=== PATIENT | male | born 1940 | race Caucasian/White ===

== ENCOUNTER 2017-11-07 12:27 | Inpatient (IN) | payer MEDICARE ==
[~2017-11-07] VITALS: Ht 177.8 cm; Wt 102.6 kg
[2017-11-07] MEDS ORDERED: NITROGLYCERIN 1GM/1 INCH PACKET TD ONE (12:41)
[2017-11-07] MEDS ORDERED: ASPIRIN 325 MG TABLET ONE (12:41)
[2017-11-07 12:49] LABS: BASOPHILS % (AUTO) 0.7 % (0.0-5.0); EOSINOPHILS % (AUTO) 2.8 % (0.0-8.0); HEMATOCRIT 49.4 % (42-54); LYMPHOCYTES % (AUTO) 30.1 % (21.0-51.0); MEAN CORPUSCULAR HEMOGLOBIN 31.6 pg (27.0-33.0); MEAN CORPUSCULAR HGB CONC 34.7 g/dL (32.0-36.0); MEAN CORPUSCULAR VOLUME 91.2 fL (79-99); NEUTROPHILS % (AUTO) 60.4 % (40.0-77.0); NUCLEATED RED BLOOD CELLS 0.1 % (0.0-0.19); PLATELET COUNT (AUTO) 178 K/uL (130-400); RED BLOOD CELL COUNT(AUTO) 5.41 MIL/uL (4.50-6.20); WHITE BLOOD COUNT (AUTO) 8.6 K/uL (4.8-10.8)
[2017-11-07 13:00] LABS: ALBUMIN 3.7 g/dL (3.5-5.0); CREATININE 1.1 mg/dL (0.5-1.5); POTASSIUM 3.8 mmol/L (3.5-5.1)
[2017-11-07 13:01] LABS: INR 1.06 (0.85-1.15); PARTIAL THROMBOPLASTIN TIME 25.1 SEC (26.3-35.5); PROTHROMBIN TIME 11.1 SEC (9.6-11.6)
[2017-11-07 13:41] LABS: BILIRUBIN,TOTAL 0.6 mg/dL (0.2-1.0); TOTAL PROTEIN, SERUM 6.9 g/dL (6.0-8.3)
[2017-11-07 16:42] LABS: CREATINE KINASE MB 2.7 ng/mL (0.5-3.6); TROPONIN I 0.55 ng/mL (0.00-0.06)
[2017-11-07] MEDS ORDERED: METOPROLOL TARTRATE 25 MG TAB ONE (20:10)
[2017-11-07] MEDS ORDERED: ATORVASTATIN CALCIUM 40 MG TABLET PO SCH (21:00)
[2017-11-07] MEDS: METOPROLOL TARTRATE 25 MG TAB PO SCH (21:00)
[2017-11-07 21:05] VITALS: BP 141/78
[2017-11-07 21:15] LABS: CREATINE KINASE MB 3.6 ng/mL (0.5-3.6)
[2017-11-07 21:16] LABS: TROPONIN I 1.93 ng/mL (0.00-0.06)
[2017-11-07] MEDS ORDERED: NITR0.4T50 SL (22:05)
[2017-11-07] MEDS ORDERED: OMEP10SU2 PO (22:05)
[2017-11-07] MEDS ORDERED: ALFU10TA18 PO (22:05)
[2017-11-07] MEDS ORDERED: ISOS30TA11 PO (22:05)
[2017-11-07] MEDS ORDERED: LISI10TA7 PO (22:05)
[2017-11-07] MEDS ORDERED: AEC81 PO (22:05)
[2017-11-07] MEDS ORDERED: DEXT1DRO OP (22:05)
[2017-11-07] MEDS ORDERED: ATOR10 PO (22:05)
[2017-11-07] MEDS ORDERED: METO-408 PO (22:05)
[2017-11-07 23:26] VITALS: BP 129/76
[2017-11-08] VITALS (12 sets, daily range): BP systolic 115–147; BP diastolic 58–81
[2017-11-08] MEDS ORDERED: ACETAMINOPHEN 325 MG TAB PO PRN (01:15)
[2017-11-08] MEDS ORDERED: LIDOCAINE HCL-MPF 1% 2ML VIAL IVP PRN (01:15)
[2017-11-08] MEDS ORDERED: LACTULOSE 20 GM/30 ML UDCUP PO PRN (01:15)
[2017-11-08] MEDS ORDERED: POTASSIUM CHLORIDE 10% ELIXIR 20 MEQ/15 ML UDCUP PO PRN (01:15)
[2017-11-08] MEDS ORDERED: POTASSIUM CHLORIDE 20 MEQ ERTAB PO PRN (01:15)
[2017-11-08] MEDS ORDERED: ONDANSETRON HCL 4 MG/2 ML VIAL IVP PRN (01:15)
[2017-11-08] MEDS ORDERED: POTASSIUM CHLORIDE 20MEQ/100ML 100 ML IV PRN (01:15)
[2017-11-08 04:52] LABS: BASOPHILS % (AUTO) 0.6 % (0.0-5.0); EOSINOPHILS % (AUTO) 3.8 % (0.0-8.0); HEMATOCRIT 47.6 % (42-54); LYMPHOCYTES % (AUTO) 33.6 % (21.0-51.0); MEAN CORPUSCULAR HEMOGLOBIN 31.7 pg (27.0-33.0); MEAN CORPUSCULAR HGB CONC 34.6 g/dL (32.0-36.0); MEAN CORPUSCULAR VOLUME 91.6 fL (79-99); MONOCYTES % (AUTO) 7.7 % (3.0-13.0); NEUTROPHILS % (AUTO) 54.3 % (40.0-77.0); NUCLEATED RED BLOOD CELLS 0.2 % (0.0-0.19); PLATELET COUNT (AUTO) 162 K/uL (130-400); RED CELL DISTRIBUTION WIDTH 14.2 % (11.0-15.5); WHITE BLOOD COUNT (AUTO) 9.5 K/uL (4.8-10.8)
[2017-11-08 04:53] LABS: CREATININE 1.2 mg/dL (0.5-1.5); POTASSIUM 4.2 mmol/L (3.5-5.1)
[2017-11-08] MEDS: ASPIRIN 81MG TAB.CHEW PO SCH (08:05)
[2017-11-08] MEDS: ISOSORBIDE MONO 30MG TAB SR PO SCH (08:05)
[2017-11-08] MEDS: LISINOPRIL 10 MG TABLET PO SCH (08:05)
[2017-11-08] MEDS: PANTOPRAZOLE SODIUM 40 MG TABLET.DR PO SCH (08:05)
[2017-11-08] MEDS: METOPROLOL TARTRATE 25 MG TAB PO SCH ×2 (08:05→20:32)
[2017-11-08] MEDS ORDERED: SODIUM CHLORIDE 0.9% 500ML 500 ML IV SCH (08:23)
[2017-11-08] MEDS ORDERED: ISOVUE-370 50ML VIAL IV ONE (08:30)
[2017-11-08] MEDS ORDERED: BIVALIRUDIN 250 MG/VIAL IV ONE (08:30)
[2017-11-08] MEDS ORDERED: LIDOCAINE HCL-MPF 2% 5ML VIAL ONE (08:30)
[2017-11-08] MEDS ORDERED: IOPAMIDOL-370 100 ML VIAL IV ONE (08:30)
[2017-11-08] MEDS ORDERED: NITROGLYCERIN 5 MG/ML 10 ML VIAL IV ONE (08:30)
[2017-11-08] MEDS ORDERED: FENTANYL CITRATE PF 50 MCG/1 ML 2ML VIAL ONE (08:58)
[2017-11-08] MEDS ORDERED: MIDAZOLAM HCL 1 MG/ML 2ML VIAL ONE (08:58)
[2017-11-08] MEDS ORDERED: ENOXAPARIN SODIUM 40 MG/0.4 ML SYRINGE SQ SCH (09:00)
[2017-11-08] MEDS ORDERED: SODIUM CHLORIDE 0.9% 1000ML 1,000 ML IV SCH (09:26)
[2017-11-08] MEDS ORDERED: METOPROLOL TARTRATE 1 MG/ML 5ML VIAL IV PRN (09:30)
[2017-11-08] MEDS ORDERED: ATORVASTATIN CALCIUM 20 MG TABLET PO SCH (21:00)
[2017-11-08] MEDS ORDERED: ALFUZOSIN 10 MG PO SCH (21:00)
[2017-11-09 03:54] VITALS: BP 145/94
[2017-11-09 04:23] LABS: BASOPHILS % (AUTO) 0.5 % (0.0-5.0); EOSINOPHILS % (AUTO) 3.3 % (0.0-8.0); HEMATOCRIT 45.7 % (42-54); LYMPHOCYTES % (AUTO) 29.8 % (21.0-51.0); MEAN CORPUSCULAR HEMOGLOBIN 31.9 pg (27.0-33.0); MEAN CORPUSCULAR HGB CONC 35.3 g/dL (32.0-36.0); MEAN CORPUSCULAR VOLUME 90.4 fL (79-99); MONOCYTES % (AUTO) 7.5 % (3.0-13.0); NEUTROPHILS % (AUTO) 58.9 % (40.0-77.0); NUCLEATED RED BLOOD CELLS 0.1 % (0.0-0.19); PLATELET COUNT (AUTO) 171 K/uL (130-400); RED BLOOD CELL COUNT(AUTO) 5.05 MIL/uL (4.50-6.20); WHITE BLOOD COUNT (AUTO) 9.5 K/uL (4.8-10.8)
[2017-11-09 04:48] LABS: CREATININE 1.1 mg/dL (0.5-1.5); POTASSIUM 3.9 mmol/L (3.5-5.1)
[2017-11-09 07:41] VITALS: BP 132/72
[2017-11-09] MEDS ORDERED: ISOS30TA11 PO (07:49)
[2017-11-09] MEDS ORDERED: TICA90TA PO (07:49)
[2017-11-09] MEDS: PANTOPRAZOLE SODIUM 40 MG TABLET.DR PO SCH (10:13)
[2017-11-09] MEDS: ISOSORBIDE MONO 30MG TAB SR PO SCH (10:13)
[2017-11-09] MEDS: ASPIRIN 81MG TAB.CHEW PO SCH (10:13)
[2017-11-09] MEDS: METOPROLOL TARTRATE 25 MG TAB PO SCH (10:13)
[2017-11-09] MEDS: LISINOPRIL 10 MG TABLET PO SCH (10:13)
== END 2017-11-09 11:45 | disposition home or self-care (01) | DRG 282 ==
LOC: EDH 12:27 → EDHIP 14:58 → OBSVTOIN 14:58 → 2DH 21:09
PROVIDERS: ADMIT Internal Medicine; ATTEND Internal Medicine
PROC: 4A023N7 Measurement of Cardiac Sampling and Pressure, Left Heart, Percutaneous Approach (ICD-10-PCS; principal; 2017-11-08)
PROC: B2111ZZ Fluoroscopy of Multiple Coronary Arteries using Low Osmolar Contrast (ICD-10-PCS; 2017-11-08)
PROC: B2151ZZ Fluoroscopy of Left Heart using Low Osmolar Contrast (ICD-10-PCS; 2017-11-08)
DX: I21.4 Non-ST elevation (NSTEMI) myocardial infarction (principal); I11.9 Hypertensive heart disease without heart failure; E78.00 Pure hypercholesterolemia, unspecified; E78.5 Hyperlipidemia, unspecified; I25.110 Atherosclerotic heart disease of native coronary artery with unstable angina pectoris; K21.9 Gastro-esophageal reflux disease without esophagitis; N40.0 Benign prostatic hyperplasia without lower urinary tract symptoms; I25.2 Old myocardial infarction; Z79.82 Long term (current) use of aspirin; Z79.899 Other long term (current) drug therapy; Z95.5 Presence of coronary angioplasty implant and graft; Z82.49 Family history of ischemic heart disease and other diseases of the circulatory system
CPT/HCPCS: 36415; 71045; 80048; 80053; 80061; 82550; 82553; 83874; 83880; 84484; 85025; 85610; 85730; 93005; 93458; 99152; 99153; 99291; C1760; C1894; J0583; J1644; J2250; J3010; J3490; J7030; Q9967

== ENCOUNTER → 2019-09-21 | Outpatient (CLI) | payer MEDICARE ==
[~2019-09-21] MED LIST: AEC81 PO; ALFU10TA9 PO; ATOR10 PO; DEXT1DRO OP; ISOS30TA11 PO; LISI10TA7 PO; METO-408 PO; NITR0.4T50 SL; OMEP10SU2 PO; TICA90TA PO
== END | disposition home or self-care (01) ==
LOC: SHCH 08:39
PROVIDERS: ATTEND Internal Medicine Cardiovascular Disease
DX: I48.0 Paroxysmal atrial fibrillation (principal)
CPT/HCPCS: 93306; 93356

== ENCOUNTER 2019-12-06 12:41 | Observation (INO) | payer MEDICARE ==
[~2019-12-06] VITALS: Ht 177.8 cm; Wt 98.6 kg
[2019-12-06] MEDS ORDERED: ASPIRIN 325 MG TABLET ONE (12:47)
[2019-12-06 13:04] LABS: BASOPHILS % (AUTO) 0.4 % (0.0-5.0); EOSINOPHILS % (AUTO) 2.2 % (0.0-8.0); HEMATOCRIT 53.2 % (42-54); MEAN CORPUSCULAR VOLUME 91.3 fL (79-99); MONOCYTES % (AUTO) 8.5 % (3.0-13.0); NEUTROPHILS % (AUTO) 50.7 % (40.0-77.0); PLATELET COUNT (AUTO) 165 K/uL (130-400); RED BLOOD CELL COUNT(AUTO) 5.83 MIL/uL (4.50-6.20); RED CELL DISTRIBUTION WIDTH 13.3 % (11.0-15.5)
[2019-12-06 13:13] LABS: CREATININE 1.3 mg/dL (0.5-1.5)
[2019-12-06 13:14] LABS: INR 1.09 (0.85-1.15); PARTIAL THROMBOPLASTIN TIME 27.2 SEC (26.3-35.5); PROTHROMBIN TIME 11.7 SEC (9.6-11.6)
[2019-12-06 13:18] LABS: ALBUMIN 3.8 g/dL (3.5-5.0); BILIRUBIN,TOTAL 0.8 mg/dL (0.2-1.0); TOTAL PROTEIN, SERUM 6.9 g/dL (6.0-8.3)
[2019-12-06] MEDS ORDERED: NITROGLYCERIN 0.4 MG SL TAB SL PRN (15:00)
[2019-12-06 16:35] VITALS: BP 161/83
--- NOTE | 2019-12-06 17:30 | NUR ---
NOTE CAME IN FROM ER. DX CHEST PAIN R/O ACS. TELEMETRY MONITORING APPLIED AND HE IS ON A FIB A FLUTTER AND WITH PAUSES OF [address] PAGE WAS CALLED AND CARDIOLOGY CONSULT ORDERED. PATIENT ASYMPTOMATIC DENIES CHEST PAIN OR PRESSURE HE HAD FELT AT HOME AND IS THE REASON HE CAME TO HOSPITAL FOR. NO OTHER PROBLEMS VOICED AT THIS TIME. 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 PATIENT TOOK NITRO SL TO RELIEVE HIS SYMPTOMS AT HOME. HE HAS CARDIAC HISTORY AND WITH 2 STENTS PLACED IN THE PAST BACK HOME IN [place].
[2019-12-06] MEDS ORDERED: UBID1CAP56 PO (18:14)
[2019-12-06] MEDS ORDERED: RIVA20TA PO (18:14)
[2019-12-06] MEDS ORDERED: CHOL20004 PO (18:14)
[2019-12-06 19:52] VITALS: BP 145/84
[2019-12-06] MEDS ORDERED: ATORVASTATIN CALCIUM 20 MG TABLET PO SCH (21:00)
[2019-12-06] MEDS: METOPROLOL TARTRATE 25 MG TAB PO SCH (21:00)
--- NOTE | 2019-12-06 21:00 | NUR ---
PATIENT A/OX3, DENIES CHEST PAIN OR SOB. CONTINUES TO BE IN AFIB/AFLUTTER. HR 50-59. BETA ZENOBIA NOT ADMINISTERED DUE TO HR BELOW 60. WILL CONTINUE TO MONITOR.
[2019-12-06] MEDS: ISOSORBIDE MONO 30MG TAB SR PO SCH (21:16)
[2019-12-06] MEDS: RANOLAZINE 500 MG TAB.SR.12H PO SCH (21:16)
[2019-12-06 22:13] LABS: CREATINE KINASE, TOTAL 60 U/L (21-232); MYOGLOBIN 84 ng/mL (10-92); TROPONIN I < 0.04 ng/mL (0.00-0.06)
[2019-12-07] VITALS: BP 143/80
[2019-12-07 04:09] VITALS: BP 138/76
[2019-12-07 05:09] LABS: BASOPHILS % (AUTO) 0.5 % (0.0-5.0); EOSINOPHILS % (AUTO) 2.6 % (0.0-8.0); HEMATOCRIT 52.1 % (42-54); LYMPHOCYTES % (AUTO) 32.8 % (21.0-51.0); MEAN CORPUSCULAR HGB CONC 33.8 g/dL (32.0-36.0); MEAN CORPUSCULAR VOLUME 91.9 fL (79-99); MONOCYTES % (AUTO) 7.3 % (3.0-13.0); NEUTROPHILS % (AUTO) 56.4 % (40.0-77.0); PLATELET COUNT (AUTO) 158 K/uL (130-400); RED BLOOD CELL COUNT(AUTO) 5.67 MIL/uL (4.50-6.20); RED CELL DISTRIBUTION WIDTH 13.4 % (11.0-15.5); WHITE BLOOD COUNT (AUTO) 9.6 K/uL (4.8-10.8)
[2019-12-07 05:30] LABS: CARBON DIOXIDE 25 mmol/L (21-32); CHLORIDE 105 mmol/L (101-111); CHOLESTEROL 74 mg/dL (<200); CREATINE KINASE, TOTAL 51 U/L (21-232); CREATININE 1.1 mg/dL (0.5-1.5); GLOMERULAR FILTR. RATE CALC 68 mL/min (>60); GLUCOSE,RANDOM 90 mg/dL (70-105); HDL CHOLESTEROL 50 mg/dL (29-71); LDL DIRECT 44 mg/dL (0-99); MYOGLOBIN 68 ng/mL (10-92); POTASSIUM 3.8 mmol/L (3.5-5.1); SODIUM SERUM 140 mmol/L (136-145); TRIGLYCERIDES 54 mg/dL (30-200); TROPONIN I < 0.04 ng/mL (0.00-0.06); UREA NITROGEN, BLOOD 16 mg/dL (7-18)
[2019-12-07 08:00] VITALS: BP 142/87
[2019-12-07] MEDS ORDERED: ASPIRIN 81MG TAB.CHEW PO SCH (09:00)
[2019-12-07] MEDS: RANOLAZINE 500 MG TAB.SR.12H PO SCH (09:21)
[2019-12-07] MEDS: METOPROLOL TARTRATE 25 MG TAB PO SCH (09:21)
[2019-12-07] MEDS: ISOSORBIDE MONO 30MG TAB SR PO SCH (09:21)
[2019-12-07 11:00] VITALS: BP 138/61
[2019-12-07 13:43] LABS: CREATINE KINASE, TOTAL 55 U/L (21-232); MYOGLOBIN 55 ng/mL (10-92); TROPONIN I < 0.04 ng/mL (0.00-0.06)
[2019-12-07] MEDS ORDERED: ATOR20TA65 PO (14:49)
[2019-12-07] MEDS ORDERED: ASPI-1005 PO (14:49)
[2019-12-07] MEDS ORDERED: Isosorbide Mono 30MG Tab Sr PO (14:49)
[2019-12-07] MEDS ORDERED: RANO500T2 PO (14:49)
--- NOTE | 2019-12-07 16:04 | NUR ---
DC INSTRUCTIONS GIVEN TO PATIENT USING TEACH BACK, DEMONSTRATES UNDERSTANDING, PRESCRIPTIONS GIVEN TO PATIENT, REMOVED IV CATHETER, INTACT, NO BLEEDING, PT DC'D TO FAMILY, TRANSPORTED BY [facility]
== END 2019-12-07 16:04 | disposition home or self-care (01) ==
LOC: EDH 12:41 → EDHIP 14:55 → 4BH 16:16
PROVIDERS: ADMIT Internal Medicine; ATTEND Internal Medicine
DX: I48.91 Unspecified atrial fibrillation (principal); R07.2 Precordial pain; I25.10 Atherosclerotic heart disease of native coronary artery without angina pectoris; I10 Essential (primary) hypertension; E78.5 Hyperlipidemia, unspecified; E11.9 Type 2 diabetes mellitus without complications; E78.00 Pure hypercholesterolemia, unspecified; I25.2 Old myocardial infarction; Z79.01 Long term (current) use of anticoagulants; Z90.49 Acquired absence of other specified parts of digestive tract; Z95.5 Presence of coronary angioplasty implant and graft
CPT/HCPCS: 36415 ×2; 71045; 80048; 80053; 80061; 82550 ×4; 83874 ×3; 84484 ×4; 85025 ×2; 85610; 85730; 93005 ×3; 99285; G0378 ×11

== ENCOUNTER → 2019-12-14 | Outpatient (CLI) | payer MEDICARE ==
[~2019-12-14] MED LIST changes: -AEC81 PO; +ASPI-1005 PO; +ATOR20TA65 PO; +CHOL20004 PO; +Isosorbide Mono 30MG Tab Sr PO; -LISI10TA7 PO; -OMEP10SU2 PO; +RANO500T2 PO; +REGADENOSON 0.4 MG/5 ML PF SYG IVP SCH; +RIVA20TA PO; -TICA90TA PO; +UBID1CAP56 PO
== END | disposition home or self-care (01) ==
LOC: SHCH 08:33
PROVIDERS: ATTEND Internal Medicine Cardiovascular Disease
DX: I20.9 Angina pectoris, unspecified (principal)
CPT/HCPCS: 78452; 93017; 96374; A9500 ×2; J2785

== ENCOUNTER → 2023-08-31 | Outpatient (CLI) | payer MEDICARE ==
[~2023-08-31] MED LIST changes: +CHOL2000 PO; -CHOL20004 PO; -REGADENOSON 0.4 MG/5 ML PF SYG IVP SCH
== END | disposition home or self-care (01) ==
LOC: RAH 08:57
DX: M16.0 Bilateral primary osteoarthritis of hip (principal); M54.50 Low back pain, unspecified; M47.816 Spondylosis without myelopathy or radiculopathy, lumbar region
CPT/HCPCS: 72100; 73521

== ENCOUNTER → 2023-10-21 | Outpatient (CLI) | payer MEDICARE ==
[2023-10-21 12:09] LABS: BASOPHILS # (AUTO) 0.05 K/uL (0.00-0.20); BASOPHILS % (AUTO) 0.7 % (0.0-5.0); EOSINOPHILS # (AUTO) 0.16 K/uL (0.00-0.70); EOSINOPHILS % (AUTO) 2.2 % (0.0-8.0); HEMATOCRIT 47.2 % (42-54); IMMATURE GRANULOCYTE ABSOLUTE 0.01 K/uL (0-1); LYMPHOCYTES # (AUTO) 2.4 K/uL (1.0-4.8); LYMPHOCYTES % (AUTO) 33.5 % (21.0-51.0); MEAN CORPUSCULAR HEMOGLOBIN 33.7 pg (27.0-33.0); MEAN CORPUSCULAR HGB CONC 33.7 g/dL (32.0-36.0); MONOCYTES # (AUTO) 0.6 K/uL (0.1-1.0); MONOCYTES % (AUTO) 7.7 % (3.0-13.0); NEUTROPHILS % (AUTO) 55.8 % (40.0-77.0); PLATELET COUNT (AUTO) 173 K/uL (130-400); RED BLOOD CELL COUNT(AUTO) 4.72 MIL/uL (4.50-6.20); RED CELL DISTRIBUTION WIDTH 13.9 % (11.0-15.5); WHITE BLOOD COUNT (AUTO) 7.1 K/uL (4.8-10.8)
[2023-10-21 12:33] LABS: ALBUMIN 3.6 g/dL (3.5-5.0); BILIRUBIN,DIRECT 0.2 mg/dL (0.0-0.3); CREATININE 1.2 mg/dL (0.5-1.5); THYROID STIMULATING HORMONE 4.44 uIU/mL (0.36-3.74); TOTAL PROTEIN, SERUM 6.6 g/dL (6.0-8.3)
== END | disposition home or self-care (01) ==
LOC: LAB 08:59
PROVIDERS: ATTEND Internal Medicine Cardiovascular Disease
DX: I25.118 Atherosclerotic heart disease of native coronary artery with other forms of angina pectoris (principal); I10 Essential (primary) hypertension; E78.5 Hyperlipidemia, unspecified; I48.0 Paroxysmal atrial fibrillation; I25.2 Old myocardial infarction; Z79.01 Long term (current) use of anticoagulants; E66.9 Obesity, unspecified; Z68.30 Body mass index [BMI] 30.0-30.9, adult
CPT/HCPCS: 36415; 80048; 80061; 80076; 84443; 85025